=== PATIENT | male | born 1995 | race Two or more races ===

== ENCOUNTER 2018-07-05 06:33 | Emergency (ER) | payer BC, OTHER ==
[~2018-07-05] VITALS: Ht 180.3 cm; Wt 80.7 kg
[2018-07-05 06:33] VITALS: BP 121/72
[2018-07-05] MEDS ORDERED: RALTEGRAVIR POTASSIUM 400 MG TABLET PO ONE (07:00)
[2018-07-05] MEDS ORDERED: EMTRICITABINE/TENOFOVIR 1 TAB PO ONE (07:00)
[2018-07-05] MEDS ORDERED: TENOFOVIR DISOPROXIL FUMARATE 300 MG TABLET PO ONE (07:30)
[2018-07-05] MEDS ORDERED: EMTRICITABINE 200 MG CAPSULE PO ONE (07:30)
== END 2018-07-05 07:18 | disposition home or self-care (01) ==
LOC: ER 06:35
DX: T14.8XXA Other injury of unspecified body region, initial encounter (principal); W46.0XXA Contact with hypodermic needle, initial encounter; Y93.89 Activity, other specified; Y92.89 Other specified places as the place of occurrence of the external cause; Y99.8 Other external cause status
CPT/HCPCS: 86803; 87340; 87806; 99284; A4606; 36415; 86706

== ENCOUNTER 2018-09-26 13:32 | Outpatient (CLI) | payer BC, OTHER ==
[2018-09-27 06:21] LABS: BASOPHILS % (AUTO) 0.6 % (0.0-2.0); EOSINOPHILS % (AUTO) 5.3 % (0.0-6.0); HEMATOCRIT 46 % (39-51); HEMOGLOBIN 15.9 g/dL (13.5-17.5); LYMPHOCYTES # (AUTO) 2.3 /CMM (0.8-4.8); LYMPHOCYTES % (AUTO) 47.2 % (20.0-44.0); MEAN CORPUSCULAR HGB CONC 35 g/dl (31.0-36.0); MEAN CORPUSCULAR VOLUME 89 fL (80-96); MONOCYTES # (AUTO) 0.4 /CMM (0.1-1.30); MONOCYTES % (AUTO) 7.5 % (2.0-12.0); NEUTROPHILS # (AUTO) 1.9 /CMM (1.8-8.9); NEUTROPHILS % (AUTO) 39.4 % (43.0-81.0); PLATELET COUNT (AUTO) 206 /CMM (150-450); RED BLOOD CELL COUNT(AUTO) 5.14 MIL/uL (4.5-6.0); WHITE BLOOD COUNT (AUTO) 4.8 K/uL (4.3-11.0)
[2018-09-27 06:34] LABS: ALBUMIN 4.3 g/dL (3.4-5.0); BILIRUBIN,DIRECT 0.1 mg/dL (0.0-0.2); BILIRUBIN,TOTAL 0.5 mg/dL (0.2-1.0); CALCIUM, SERUM 8.7 mg/dL (8.5-10.1); CREATININE 1.1 mg/dL (0.6-1.3); MAGNESIUM 2.1 mg/dL (1.8-2.4); PHOSPHORUS 4.3 mg/dL (2.5-4.9); POTASSIUM 3.6 mmol/L (3.5-5.1); TOTAL PROTEIN, SERUM 7.7 g/dL (6.4-8.2)
[2018-09-27 06:40] LABS: T4 (THYROXINE) 9.9 ug/dL (4.7-13.3); THYROID STIMULATING HORMONE 1.899 uIU/mL (0.358-3.74)
[2018-09-28 08:06] LABS: LUTEINIZING HORMONE 5.4 mIU/mL (1.7-8.6)
== END 2018-09-26 23:59 | disposition home or self-care (01) ==
LOC: LAB 13:32
DX: Z00.00 Encounter for general adult medical examination without abnormal findings (principal)
CPT/HCPCS: 36415; 80053-TC; 80061-TC; 80076-TC; 83002; 83735-TC; 84100-TC; 84402; 84403; 84436-TC; 84443-TC; 84480; 85025-TC

== ENCOUNTER 2020-01-26 20:46 | Emergency (ER) | payer BC, MEDICAID, OTHER ==
[~2020-01-26] VITALS: Ht 180.3 cm; Wt 91.2 kg
--- NOTE | 2020-01-26 21:00 | NUR ---
URINE SAMPLE COLLECTED AND SENT TO LAB.
[2020-01-26] MEDS ORDERED: TRAMADOL HCL 50 MG TABLET ONE (21:15)
[2020-01-26] MEDS: TRAMADOL HCL 50 MG TABLET PO ONE (21:18)
--- NOTE | 2020-01-26 21:18 | NUR ---
ULTRASOUND AT BEDSIDE.
[2020-01-26 21:43] LABS: BASOPHILS % (AUTO) 0.3 % (0.0-2.0); EOSINOPHILS % (AUTO) 0.8 % (0.0-6.0); HEMATOCRIT 46 % (39-51); LYMPHOCYTES # (AUTO) 1.6 /CMM (0.8-4.8); LYMPHOCYTES % (AUTO) 16.4 % (20.0-44.0); MEAN CORPUSCULAR HGB CONC 35 g/dl (31.0-36.0); MEAN CORPUSCULAR VOLUME 89 fL (80-96); MONOCYTES # (AUTO) 0.6 /CMM (0.1-1.30); MONOCYTES % (AUTO) 6.1 % (2.0-12.0); NEUTROPHILS # (AUTO) 7.7 /CMM (1.8-8.9); NEUTROPHILS % (AUTO) 76.4 % (43.0-81.0); PLATELET COUNT (AUTO) 216 /CMM (150-450); RED BLOOD CELL COUNT(AUTO) 5.21 MIL/uL (4.5-6.0); WHITE BLOOD COUNT (AUTO) 10.1 K/uL (4.3-11.0)
[2020-01-26 21:56] LABS: APPEARANCE,URINE Clear (CLEAR); BILIRUBIN,URINE Negative (NEGATIVE); BLOOD, URINE Negative Ery/uL (NEGATIVE); COLOR,URINE Yellow (YELLOW); KETONES,URINE Negative (NEGATIVE); LEUKOCYTE ESTERASE ,URINE Negative (NEGATIVE); NITRITE, URINE Negative (NEGATIVE); PH,URINE 5.5 (5.0-8.0); PROTEIN,URINE Trace mg/dl (NEGATIVE); UGLUCOSE Negative (NEGATIVE); UROBILINOGEN,URINE 0.2 EU/dL (0.2)
[2020-01-26 22:00] LABS: CALCIUM, SERUM 8.1 mg/dL (8.5-10.1); CREATININE 1.2 mg/dL (0.6-1.3); POTASSIUM 3.4 mmol/L (3.5-5.1)
[2020-01-26 22:10] LABS: ALBUMIN 4.2 g/dL (3.4-5.0); BILIRUBIN,DIRECT 0.1 mg/dL (0.0-0.2); BILIRUBIN,TOTAL 0.5 mg/dL (0.2-1.0)
[2020-01-26 22:14] LABS: BACTERIA,URINE None seen /HPF (None Seen); RBC,URINE NONE SEEN /HPF (0-2); SQUAMOUS EPITHELIAL CELL,UR Rare /HPF (None Seen); WBC,URINE NONE SEEN /HPF (0-3)
--- NOTE | 2020-01-26 22:25 | NUR ---
Patient discharged to home in stable condition. Written and verbal after care instructions given. Patient verbalizes understanding of instruction. ambulatory with a steady gait noted. pt [id number] no acute distress noted, resp even and unlabored. pt s/o at bedside to take pt home.
[2020-01-26 22:28] VITALS: BP 132/64
== END 2020-01-26 22:57 | disposition home or self-care (01) ==
LOC: ER 20:48
DX: N43.3 Hydrocele, unspecified (principal)
CPT/HCPCS: 36415; 76870-TC; 80048-TC; 80076-TC; 81000-TC; 85025-TC